=== PATIENT | female | born 2005 | race African-American/Black ===

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

== ENCOUNTER 2025-01-23 12:11 | Emergency (ER) | payer MEDICAID, SELFPAY ==
[2025-01-23 12:13] VITALS: BP 120/73; PULSE 95; RESP 16; TEMP 36.1; O2SAT 100; BMI 24.1
--- NOTE | 2025-01-23 12:34 | EX.ED.DYSGE1 ---
HPI History of Present Illness Chief Complaint: General Illness Informant: patient Onset/Context/Timing Onset: Weeks (1) Context: Gradual Onset Timing: Continuous Quality: Itchy Location: Chest Worsened by: Nothing Relieved by: Nothing Narrative Narrative: Patient presents with sore throat and chest congestion that has been getting worse over the past week. Patient states it is gradually getting worse. Patient states her chest feels itchy in her lungs. Patient states nothing makes it worse and nothing makes it better. Patient admits to a cough but denies any sputum production. Patient denies any fevers or chills. Patient denies any nausea or vomiting. Patient does admit to some rhinorrhea and sore throat. Patient also admits to a mild headache. [facility] Medical History Preeclampsia Home Medications ?Medication ?Instructions ?Recorded ?Last Taken ?Type vit no.95-ferrous 1 tab PO DAILY 12/03/23 12/03/23 History fumarate 28 mg-folic acid 800 mcg tablet () Allergy/AdvReac Type Severity Reaction Status Date / Time No Known Allergies Allergy Verified 01/23/25 12:13 Surgical History no surgical history no surgical history Social History Smoking Status: Never smoker ROS ROS ED Constitutional Constitutional ED: Denies chills or fever(s) Eyes Eyes: Denies blurry vision or change in vision ENT ENT ED: Reports rhinorrhea and sore throat Cardiovascular Cardiovascular: Denies chest pain or palpitations Respiratory/Chest Respiratory/Chest: Reports cough; Denies dyspnea Gastrointestinal Gastrointestinal: Denies nausea or vomiting Genitourinary Genitourinary ED: Denies dysuria or hematuria Musculoskeletal Musculoskeletal: Denies back pain or neck pain Integumentary Denies abscess or rash Neurologic Neurologic: Reports headache(s); Denies weakness Allergic/Immunologic Allergic/Immunologic ED: Denies mouth swelling or urticaria EXAM Physical Exam Const Vital Signs: 01/23/25 12:13 01/23/25 12:31 01/23/25 13:18 Temperature 97.0 F L Temperature Source Temporal Pulse Rate 95 94 Respiratory Rate 16 16 Respiratory Effort Normal Respiratory Pattern Normal Normal Blood Pressure 120/73 Blood Pressure Mean 88 Pulse Ox 100 Oxygen Delivery Method Room Air Positive well nourished and well developed General Appearance ED: well developed and NAD HEENT Reports TM's clear and moist mucous membranes Tympanic Membrane ED: Yes TM's clear bilateral Eyes PERRL and EOMs intact bilaterally Neck supple and no JVD Resp normal respiratory effort and clear to auscultation bilaterally Cardio regular rate and regular rhythm GI non-tender and non-distended GI Narrative: There is a gravid uterus palpated. Palpation: soft Extremity normal to inspection General Extremety ED: Negative for edema or tenderness General Extremity: Negative for edema Neuro oriented x3, CN's II-XII intact bilaterally and no sensory deficits noted Sensorium / Orientation: alert Motor Exam: strength 5/5 throughout Psych mental status grossly normal MDM MDM MDM Narrative Medical decision making narrative: Differential diagnosis includes viral upper respiratory infection, strep pharyngitis, pneumonia, bronchitis, electrolyte abnormality, dehydration, and urinary tract infection. Chest x-ray will be obtained to assess for pneumonia or bronchitis. CBC will be obtained to assess for leukocytosis and anemia. Basic metabolic profile will be obtained to assess for electrolyte abnormality renal function. Urinalysis will be obtained to assess for urinary tract infection and hematuria. COVID-19, influenza, and RSV PCR will be obtained to assess for viral illness. Rapid strep will be obtained to assess for strep pharyngitis. History & Record Review Additional record(s) reviewed:: Prior outpatient record, Prior ED visit and Prior labs Lab Data Attestation: I reviewed the patient's lab results. Lab results narrative: Rapid strep was reviewed and was negative. CBC was reviewed. There is a mild leukocytosis of 14.4. There is a mild anemia with a hemoglobin of 10.9 and hematocrit of 32.3. Basic metabolic profile was reviewed and was within normal limits. Urinalysis was reviewed. There is no evidence of urinary tract infection or hematuria. COVID-19 PCR was reviewed and was negative. Influenza PCR was reviewed and was negative for influenza A and influenza B. RSV PCR was reviewed and was negative. Rapid strep was reviewed and was negative. Labs: Laboratory Results - last 24 hr 01/23/25 01/23/25 13:35 15:12 WBC 14.4 H RBC 3.80 L Hgb 10.9 L Hct 32.3 L MCV 85.0 MCH 28.7 MCHC 33.7 RDW Std Deviation 38.6 RDW Coeff of Bert 12.5 Plt Count 345 MPV 9.3 Immature Gran % (Auto) 2.100 H Neut % (Auto) 71.3 H Lymph % (Auto) 15.7 L Evangeline % (Auto) 8.6 Eos % (Auto) 1.7 Baso % (Auto) 0.6 Absolute Neuts (auto) 10.3 H Absolute Lymphs (auto) 2.25 Nucleated RBC % 0 Sodium 137 Potassium 3.7 Chloride 104 Carbon Dioxide 22.5 Anion Gap 10 BUN 6 Creatinine 0.60 L Estim Creat Clear Calc 146.66 Est GFR (MDRD) Non-Af 133 BUN/Creatinine Ratio 10.4 Glucose 91 Calcium 9.3 Urine Color Yellow Urine Clarity Clear Urine pH 6.5 Ur Specific [place] 1.010 Urine Protein 15 H Urine Glucose (UA) Normal Urine Ketones Negative Urine Occult Blood Negative Urine Nitrite Negative Urine Bilirubin Negative Urine Urobilinogen Normal Ur Leukocyte Esterase 25 H Radiography Chest X-Ray - ED: 2 View, Read by ED Physician, Read by Radiologist and No Acute Disease Diagnostic Testing: Clinical Impression(s) from Imaging Studies Chest X-Ray 01/23/25 13:40 IMPRESSION: Lungs appear clear throughout. No pleural effusion or pneumothorax is noted. The cardiomediastinal silhouette is within the normal range. No significant osseous abnormality is seen. Negative examination. Reading Location: [place] [id number] PA and lateral chest x-ray was obtained. There are 2 views. On my independent interpretation, lung hackett are clear. There is normal cardiac silhouette. Bony thorax is normal. There is no acute process noted. Radiologist also interpreted the x-ray and agrees. Treatment and Re-Evaluation :: Patient was given albuterol aerosol. Patient was given IV fluids. Patient was feeling somewhat better on reevaluation. Patient was advised of her findings. Patient was instructed to use [id number] decongestants as needed. Patient was instructed to follow-up with her CHEMICAL COMPOUNDER in 5 to 7 days. Patient was instructed to return if worse in any way. Patient understood and was agreeable with the plan. All questions were answered. Discharge Plan Triage Chief Complaint: General Illness Other Complaint: Sore Throat ED Provider: Loyd Edmonds Dx/Rx/DC Orders Clinical Impression: Acute upper respiratory infection, Instructions: ED URI, Viral, No Abx (Adult) Prescriptions: No Action PNV no.95-ferrous fumarate-FA [] 28 mg iron- 800 mcg tablet 1 tab PO DAILY Primary Care Provider: Care Physician,No Primary Referrals: Vielka Nuñez MD [Med Staff - Active Staff, Obstetrics-Gynecology (OBGYN)] - 5-7 Days Care Physician,No Primary [Primary Care Provider, Medical] Print Language: Georgian Disposition Disposition: Home, Self Care
[2025-01-23] MEDS: Albuterol 2.5 MG/3 ML VIAL.NEB. INHALATION (13:17)
[2025-01-23 13:18] VITALS: PULSE 94; RESP 16
[2025-01-23] MEDS: 0.9% Normal Saline (1000mL) 1,000 ML 1000 ML IV (13:38)
--- NOTE | 2025-01-23 13:40 | RAD_ITS ---
PROCEDURE: CHEST PA AND LATERAL 01/23/2025 REASON FOR EXAM: COUGH TECHNIQUE: Procedure Code: RADCXR Modality: DX Procedure: CHEST PA AND LATERAL COMPARISON: None provided RAD/Chest PA and Lateral IMPRESSION: Lungs appear clear throughout. No pleural effusion or pneumothorax is noted. The cardiomediastinal silhouette is within the normal range. No significant osseous abnormality is seen. Negative examination. Reading Location: [place] [id number]
[2025-01-23 13:49] LABS: Hematocrit 32.3 % (37-47); Hemoglobin 10.9 g/dL (12.0-15.0); Immature Granulocytes Count 0.300 X10^3/uL (0.0-0.0); Mean Corp Hgb Conc 33.7 g/dL (32-36); Mean Corpuscular Volume 85.0 fL (81-99); Mean Platelet Vol. 9.3 fl (6.2-12.0); NRBC Flagged by Analyzer 0 % (0-5); Platelet Count 345 K/mm3 (150-450); RBC Distribution Width CV 12.5 % (11.6-14.6); RBC Distribution Width SD 38.6 fl (35.1-43.9); Red Blood Count 3.80 M/mm3 (4.2-5.4); White Blood Count 14.4 K/mm3 (4.4-11.0)
[2025-01-23 14:13] LABS: Anion Gap 10 (5-15); BUN 6 mg/dL (4-19); BUN/Creat Ratio 10.4 RATIO (10-20); Calcium,Total 9.3 mg/dL (7.6-11.0); Carbon Dioxide 22.5 mmol/L (21.0-32.0); Chloride 104 mmol/L (98-108); Estimated Creatinine Clearance 146.66 ml/min (50-250); Glucose 91 mg/dL (70-99); Potassium 3.7 mmol/L (3.3-5.1)
[2025-01-23 15:20] LABS: Mucous, Urine 0 SEEN /hpf (<or=2+)
[2025-01-23 15:27] LABS: Color, Urine Yellow (Yellow); Glucose, Dipstick Normal (Normal); Ketone-Dipstick Negative (Negative); Leukocyte Esterase-Dipstick 25 /ul (Negative); Nitrite-Dipstick Negative (Negative); Occult Blood-Urine Negative /ul (Negative); Protein-Dipstick 15 mg/dl (Negative); Specific Gravity, Urine 1.010 (1.002-1.030); Urine Bilirubin Dipstick Negative (Negative)
[2025-01-23 16:12] VITALS: BP 112/78; BP 134/78; PULSE 78; RESP 16; TEMP 37.1; O2SAT 98; O2SAT 99
[2025-01-23 16:48] LABS: Red Blood Cells-Urine 0-5 SEEN /hpf (0-5); Squamous Epithelial Cells - UA 0-5 SEEN /hpf (5-10)
== END 2025-01-23 16:16 | disposition home or self-care (01) ==
PROVIDERS: Emergency Provider Emergency Medicine; Visit Provider Emergency Medicine
DX: O99.519 Diseases of the respiratory system complicating pregnancy, unspecified trimester (principal); J06.9 Acute upper respiratory infection, unspecified; Z3A.00 Weeks of gestation of pregnancy not specified
CPT/HCPCS: 71046; 80048; 81001; 85025; 87631; 87651; 94640; 96360; 99284

== ENCOUNTER 2025-02-14 19:54 | Outpatient (CLI) | payer MEDICAID, SELFPAY ==
[2025-02-14] VITALS (9 sets, daily range): BP systolic 129–143; BP diastolic 66–87; PULSE 58–94; BMI 27.2
[2025-02-14 22:16] LABS: Hematocrit 29.5 % (37-47); Hemoglobin 10.2 g/dL (12.0-15.0); Mean Corp Hgb Conc 34.6 g/dL (32-36); Mean Corpuscular Volume 81.5 fL (81-99); Mean Platelet Vol. 9.7 fl (6.2-12.0); Platelet Count 389 K/mm3 (150-450); RBC Distribution Width CV 11.9 % (11.6-14.6); RBC Distribution Width SD 35.3 fl (35.1-43.9); Red Blood Count 3.62 M/mm3 (4.2-5.4); White Blood Count 11.8 K/mm3 (4.4-11.0)
[2025-02-14 22:40] LABS: Uric Acid 5.6 mg/dL (2.6-6.0)
[2025-02-14 22:41] LABS: Creatinine, Urine (random) 78.80 mg/dL (28.00-217.00); Protein, Urine (Random) 11.0 mg/dL (0.0-12.0); Protein:Creat Ratio 140 mg/g CRE (0-200)
[2025-02-14 22:42] LABS: AST(SGOT) 15 U/L (<=31); Alanine Aminotransfer ALT/SGPT < 5 U/L (<=34); Estimated Creatinine Clearance 143.22 ml/min (50-250)
--- NOTE | 2025-02-15 03:24 | OB.TRI.NOTE ---
HPI - General General Date of Service: 02/14/25 HPI Narrative MOHIT MCGARRY, is a 19 F @ 29.5 weeks who presents with concerns regarding elevated BP at home. pt reports was checking due to h/o Preeclampsia not because she had any symptoms. PFSH PFSH Medical History Preeclampsia Home Medications ?Medication ?Instructions ?Recorded ?Last Taken ?Type vit no.95-ferrous 1 tab PO DAILY 12/03/23 12/03/23 History fumarate 28 mg-folic acid 800 mcg tablet () Allergy/AdvReac Type Severity Reaction Status Date / Time No Known Allergies Allergy Verified 02/14/25 20:47 Social History Smoking Status: Never smoker NST FHR Rate Baby A Baseline: 140 Variability:: Moderate Accelerations:: 15 x 15 Decelerations:: None NST Reactive:: Yes FHR Category:: Category I Uterine Activity:: no ctx Assessment & Plan (1) History of pre-eclampsia: (2) 29 weeks gestation of : PLAN: Plan @ 29.1 weeks- elevated BP at home with h/o PRE Eclampsia last 1) PRE E labs wnl 2) BPs reviewed had 3 mild range- highest 143/84 otherwise normal (elevated were not >4hrs apart) 3) reasurance given- follow up in office w/ BP cuff to compare readings 4) dc home
== END 2025-02-14 23:04 | disposition home or self-care (01) ==
LOC: WPOUT 20:04 → WP 20:06
PROVIDERS: Visit Provider Obstetrics & Gynecology
DX: O26.893 Other specified pregnancy related conditions, third trimester (principal); R03.0 Elevated blood-pressure reading, without diagnosis of hypertension; Z3A.29 29 weeks gestation of pregnancy; Z87.59 Personal history of other complications of pregnancy, childbirth and the puerperium
CPT/HCPCS: 36415; 59025; 82565; 82570; 84156; 84450; 84460; 84550; 85027; 99221; G0378

== ENCOUNTER 2025-03-11 10:10 | Outpatient (CLI) | payer MEDICAID, SELFPAY ==
[2025-03-11 10:30] VITALS: BP 188/104; PULSE 77
[2025-03-11 10:35] VITALS: BMI 28.0
[2025-03-11 11:29] VITALS: BP 210/116; PULSE 67
--- NOTE | 2025-03-11 11:53 | OB.TRI.NOTE ---
HPI - General HPI Narrative MOHIT MCGARRY, is a 19 F G2, P1 at 33.2 weeks presents to [facility] with complaints of elevated blood pressure. She states she woke up with swollen eyes and that is why she checked her blood pressure this morning. She denies any headaches, visual changes, epigastric pain. She reports good movement. She denies any vaginal bleeding or leaking fluid. She states her first was complicated with preeclampsia and delivered around 27 weeks. She does have a history of syphilis treated in 2023. Patient reports no other complications with this . Patient reports no other concerns PFSH PFS Medical History Preeclampsia Home Medications ?Medication ?Instructions ?Recorded ?Last Taken ?Type vit no.95-ferrous 1 tab PO DAILY 12/03/23 12/03/23 History fumarate 28 mg-folic acid 800 mcg tablet () Allergy/AdvReac Type Severity Reaction Status Date / Time No Known Allergies Allergy Verified 02/14/25 20:47 Social History Smoking Status: Never smoker Physical Exam Narrative No RUQ pain on palpation NST FHR Rate Baby A Baseline: 120 Variability:: Moderate Accelerations:: 15 x 15 Decelerations:: None NST Reactive:: Yes FHR Category:: Category I Uterine Activity:: none Assessment & Plan (1) 29 weeks gestation of : (2) 33 weeks gestation of : PLAN: Plan @ 33.2 weeks SEVERE PREECLAMPSIA 1) PT is not being cooperative with IV start- offered Nitrous for pain control for iv start. MAGNESIUM SULFATE ONCE IV STARTED 2) pt agreeable to transport to [facility]- Dr. Navi Giraldo contacted and accepting. transport line intiated 3) Celestone #1 given 4) Procardia PO this time- will initiate IV therapy if needed 5) PEDs on unit notified
[2025-03-11 12:05] VITALS: BP 143/68; PULSE 131
--- NOTE | 2025-03-11 12:23 | PCM.PN.BLA ---
Progress Note Unable to get IV placed- pt has been informed on risks of not having IV placed. She states to nurses she is willing to have nursing try to get one on hand in a little bit. we have offered Nitrous as well. pt verbalized understanding of risks Severe PRE E including but not limited stroke, maternal and or . Will give IM Magnesium 10g. plan to still transport patient if Stable
[2025-03-11 12:57] VITALS: BP 156/90; PULSE 96
[2025-03-11] MEDS: Magnesium Sulfate 4gm/100mL 4 GM/100 ML IV.SOLN. IV (13:00)
== END 2025-03-11 12:55 | disposition short-term general hospital (02) ==
LOC: WPOUT 10:19 → WP 10:19
PROVIDERS: Referring Provider Obstetrics & Gynecology; Visit Provider Obstetrics & Gynecology
DX: O14.13 Severe pre-eclampsia, third trimester (principal); Z3A.33 33 weeks gestation of pregnancy; Z87.59 Personal history of other complications of pregnancy, childbirth and the puerperium
CPT/HCPCS: J0702; J3475; 59025; 59050; 99221; G0378